=== PATIENT | female | born 1985 | race Two or more races ===

== ENCOUNTER 2016-08-17 14:02 | Emergency (ER) | payer MEDICAID ==
[~2016-08-17] VITALS: Ht 154.9 cm; Wt 54.4 kg
[2016-08-17 14:15] VITALS: BP 124/89
[2016-08-17 14:53] LABS: Basophils # (auto) 0 uL; CONDITION Y; Eosinophils # (auto) 0.2 uL; Eosinophils % (auto) 1.8 % (0.0-7.0); Hematocrit 37.9 % (36.0-46.0); Hemoglobin 12.9 g/dL (12.2-16.2); Lymphocytes # (auto) 0.8 uL; Lymphocytes % (auto) 7.9 % (10.0-50.0); Mean Corpuscular Volume 85.3 fL (80.0-100.0); Mean Platelet Volume 9.1 fL (7.4-10.4); Neutrophils # (auto) 7.9 uL; Neutrophils % (auto) 80.3 % (37.0-80.0); Platelet Count (auto) 311 10^3/uL (140-450); White Blood Cell 9.9 10^3/uL (4.4-10.8)
[2016-08-17 15:12] LABS: Albumin 3.2 g/dL (3.4-5.0); BUN/Creatinine Ratio 8.4; Bilirubin, Total 0.4 mg/dL (0.2-1.0); Calcium 9.3 mg/dL (8.5-10.1); Potassium 3.8 mmol/L (3.5-5.1)
[2016-08-17 16:11] LABS: Urine Bilirubin Negative (Negative); Urine Blood 1+ /uL (Negative); Urine Color Yellow (Yellow); Urine Glucose Normal (Normal); Urine Ketone Negative (Negative); Urine Nitrite Negative (Negative); Urine RBC 1 /hpf (0 - 4); Urine Squamous Epithelial Cell FEW /hpf (<5); Urine Urobilinogen Normal (Negative)
== END 2016-08-18 02:00 | disposition left against medical advice (07) ==
LOC: ER 14:06
DX: M54.5 Low back pain (principal); R10.9 Unspecified abdominal pain; Z53.21 Procedure and treatment not carried out due to patient leaving prior to being seen by health care provider
CPT/HCPCS: 36415; 80053; 81001; 85025

== ENCOUNTER 2019-06-23 09:56 | Emergency (ER) | payer MEDICAID ==
[~2019-06-23] VITALS: Ht 157.5 cm; Wt 59.0 kg
[2019-06-23 10:30] VITALS: BP 108/77
[2019-06-23] MEDS ORDERED: ACETAMINOPHEN/CODEINE#3 (300/30mg) TAB PO ONE (10:45)
== END 2019-06-23 11:35 | disposition home or self-care (01) ==
LOC: ER 09:56
DX: S43.005A Unspecified dislocation of left shoulder joint, initial encounter (principal); X58.XXXA Exposure to other specified factors, initial encounter; Y93.89 Activity, other specified; Y92.89 Other specified places as the place of occurrence of the external cause; Y99.8 Other external cause status
CPT/HCPCS: 23650; 73030